=== PATIENT | male | born 1985 | race Two or more races ===

== ENCOUNTER 2022-12-15 09:05 | Emergency (ER) | payer OTHER, SELFPAY ==
[2022-12-15 09:25] VITALS: BP 140/88; PULSE 84; RESP 18; TEMP 36.9; O2SAT 99; BMI 38.4
--- NOTE | 2022-12-15 09:35 | PC.NURSE ---
12/15/22 0935 pt reports pain edema to approx half golf ball sized area to posterior neck just distal to hairline, no active drainage, tender to touch, slightly boggy. Bryan Rodney RN
[2022-12-15] MEDS: LIDOCAINE HCL 2%-EPINEPHRINE 1:200,000 20 ML MDV INJ (09:49)
--- NOTE | 2022-12-15 09:58 | ED.SKABFB1 ---
HPI - Skin/Abscess/Foreign Bdy General Chief complaint: Skin/Abscess/Foreign Body Stated complaint: ABCESS ON R SIDE OF NECK Time Seen by Provider: 12/15/22 09:20 Source: patient Mode of arrival: walk-in Limitations: no limitations History of Present Illness HPI narrative: painful area of skin to right lower posterolateral neck. Started last week and slowly worsened. No swollen and painful - concern for abscess. No systemic symptoms such as fever or vomiting. Related Data Previous Rx's Medication Instructions Recorded doxycycline hyclate 100 mg capsule 100 mg PO BID 7 days #14 caps 12/15/22 nabumetone 750 mg tablet 750 mg PO BID #14 tabs 12/15/22 Allergies Allergy/AdvReac Type Severity Reaction Status Date / Time azithromycin [From Zithromax] Allergy Intermediate Verified 12/15/22 09:28 Penicillins Allergy Intermediate Verified 12/15/22 09:28 sulfamethoxazole Allergy Intermediate Verified 12/15/22 09:32 [From Bactrim] trimethoprim [From Bactrim] Allergy Intermediate Verified 12/15/22 09:32 PFSH PFSH Social History Smoking status: Former smoker Exam Narrative Exam Narrative: Nurses notes and vital signs reviewed and patient is not hypoxic. afebrile General: Well-appearing and in no apparent distress. Skin: Warm, dry, no pallor noted. No rash. RIGHT LOWER POSTEROLATERAL NECK = skin abscess measuring 2.5cm x 1.5cm with induration and a central area of fluctuance. Head: Normocephalic, atraumatic. Neck: Supple, tender at cutaneous abscess - see above Eye: Pupils are equal, round and EOMI. No scleral icterus. Cardiovascular: Regular Rate and Rhythm without murmur, gallop or rub. Respiratory: No accessory muscle use or respiratory distress. Lungs are clear to auscultation, no wheezing, rales or rhonchi Musculoskeletal: normal ROM Neurological: A&O x4. No cranial nerve dysfunction observed. No truncal ataxia. Moves all extremities. Sensation intact. Psychiatric: Cooperative and interactive. Normal mood and affect. Constitutional Vital Signs, click to edit/add: Last Vital Signs Temp 98.5 F 12/15/22 09:25 Pulse 84 12/15/22 09:25 Resp 18 12/15/22 09:25 BP 140/88 H 07/17/23 09:25 Pulse Ox 99 12/15/22 09:25 O2 Del Method Room Air 12/15/22 09:25 Course Vital Signs Vital signs: Vital Signs Temperature 98.5 F 12/15/22 09:25 Pulse Rate 84 12/15/22 09:25 Respiratory Rate 18 12/15/22 09:25 Blood Pressure 140/88 H 12/15/22 09:25 Pulse Oximetry 99 12/15/22 09:25 Oxygen Delivery Method Room Air 12/15/22 09:25 Temperature 98.5 F 12/15/22 09:25 Pulse Rate 84 12/15/22 09:25 Respiratory Rate 18 12/15/22 09:25 Blood Pressure 140/88 H 12/15/22 09:25 Pulse Oximetry 99 12/15/22 09:25 Oxygen Delivery Method Room Air 12/15/22 09:25 MDM - Skin/Abscess/Foreign Bdy MDM Narrative Medical decision making narrative: the patient tolerated the procedure well. See my note above. Wound culture sent he was given oral doxycycline in the emergency Department before discharge. He is prescribed additional doxycycline to take at home along with Relafen for pain. He was given referral information for Dr. Taylor for follow up if he cant see his PCP Discharge Plan Discharge Chief Complaint: Skin/Abscess/Foreign Body Clinical Impression: Abscess of skin or subcutaneous tissue Patient Disposition: Home, Self-Care Time of Disposition Decision: 09:56 Prescriptions / Home Meds: New doxycycline hyclate 100 mg capsule 100 mg PO BID 7 Days Qty: 14 0RF nabumetone 750 mg tablet 750 mg PO BID Qty: 14 0RF Instructions: Abscess (ED) Stand Alone Forms: Portal Instructions Referrals: Eliseo Taylor MD [Physician] - 1 week Procedures ED ID Incision & Drainage I&D Type: abcess Site: other (neck) Side (if applicable): right Anesthetic used: lidocaine 1% (with epi) Technique: needle aspiration and incised with #11 blade Amount of fluid (mL): 7 (mL) Irrigation: Yes Packing used: none Complications: other (no complications)
[2022-12-15] MEDS: DOXYCYCLINE MONOHYDRATE 100 MG CAPSULE PO (10:05)
== END 2022-12-15 10:13 | disposition home or self-care (01) ==
PROVIDERS: Emergency Provider Emergency Medicine
DX: L02.11 Cutaneous abscess of neck (principal)
CPT/HCPCS: 10060; 87070; 87076; 99283

== ENCOUNTER 2023-07-21 13:33 | Emergency (ER) | payer SELFPAY ==
[2023-07-21] VITALS (10 sets, daily range): BP systolic 110–133; BP diastolic 74–92; PULSE 102–132; RESP 12–21; TEMP 36.7; O2SAT 94–100; BMI 51.8
--- NOTE | 2023-07-21 13:49 | ECG_ITS ---
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
[2023-07-21] MEDS: IPRATROPIUM/ALBUTEROL SULFATE 3 ML AMPUL.NEB IH (13:50)
--- NOTE | 2023-07-21 13:52 | ED.SOB1 ---
HPI - SOB/Dyspnea General Chief Complaint: Shortness of Breath/Dyspnea Stated Complaint: SOB Time Seen by Provider: 07/21/23 13:43 Source: patient Limitations: no limitations History of Present Illness HPI Narrative: Patient is a 37-year-old male with a history of COPD who presents to the emergency department for increased shortness of breath at a began overnight. He has some tightness in the chest. He denies fevers, chills. He is diaphoretic, stridorous with increased work of breathing at initial interview. He has not had any other significant upper respiratory symptoms. No hemoptysis or sputum production. No peripheral edema. He used his rescue inhaler prior to arrival without improvement. Related Data Previous Rx's Medication Instructions Recorded doxycycline hyclate 100 mg capsule 100 mg PO BID 7 days #14 caps 12/15/22 nabumetone 750 mg tablet 750 mg PO BID #14 tabs 12/15/22 albuterol sulfate 2.5 mg/3 mL 2.5 mg (3 mL) inhalation Q6H PRN 07/21/23 (0.083 %) solution for nebulization shortness of breath or wheezing #90 mL hwfljyekxefsswn-kcpdceqxknqlarm-LA 10 ml PO Q6H PRN cold symptoms 07/21/23 2 mg-30 mg-10 mg/5 mL oral syrup #200 mL (Bromfed DM) prednisone 20 mg tablet See Rx Instructions .Route 07/21/23 .COMPLEX #12 tabs promethazine 25 mg tablet 25 mg PO Q6H PRN nausea and 07/21/23 vomiting #12 tabs Allergies Allergy/AdvReac Type Severity Reaction Status Date / Time azithromycin [From Zithromax] Allergy Intermediate Verified 12/15/22 09:28 Penicillins Allergy Intermediate Verified 12/15/22 09:28 sulfamethoxazole Allergy Intermediate Verified 12/15/22 09:32 [From Bactrim] trimethoprim [From Bactrim] Allergy Intermediate Verified 12/15/22 09:32 Review of Systems ROS Constitutional Denies: fever or chills Ears, nose, mouth, and throat Denies: throat pain or nasal congestion Cardiovascular Reports: chest pain Respiratory Reports: shortness of breath and cough Gastrointestinal Denies: nausea or vomiting Musculoskeletal Denies: back pain Integumentary/Breast Denies: rash Neurological Denies: headache Hematologic/Lymphatic Denies: easy bruising or easy bleeding PFSH PFS Social History Smoking status: Current every day smoker Exam Narrative Exam Narrative: Gen.: Awake, alert, Mild distress Head: Normocephalic, atraumatic ENT: Moist mucous membranes Respiratory: Tachypnea with inspiratory and expiratory wheezing, mild stridor, unable to speak in full sentences Cardio: Regular rate and rhythm Extremities: Moves extremities equally Psych: Normal mood and affect Neuro: No focal neuro deficit Skin: Warm, dry, intact Constitutional Vital Signs, click to edit/add: Last Vital Signs Temp 98.0 F 07/21/23 13:48 Pulse 132 H 07/21/23 16:00 Resp 12 07/21/23 16:00 BP 110/82 07/21/23 16:00 Pulse Ox 96 07/21/23 16:00 O2 Del Method Room Air 07/21/23 15:53 Course Vital Signs Vital signs: Vital Signs Temperature 98.0 F 07/21/23 13:48 Pulse Rate 107 H 07/21/23 13:48 Respiratory Rate 18 07/21/23 13:48 Blood Pressure 133/92 H 07/21/23 13:48 Pulse Oximetry 98 07/21/23 13:48 Oxygen Delivery Method Room Air 07/21/23 13:48 Temperature 98.0 F 07/21/23 13:48 Pulse Rate 132 H 07/21/23 16:00 Respiratory Rate 12 07/21/23 16:00 Blood Pressure 110/82 07/21/23 16:00 Pulse Oximetry 96 07/21/23 16:00 Oxygen Delivery Method Room Air 07/21/23 15:53 MDM - SOB/Dyspnea MDM Narrative Medical decision making narrative: On arrival, the patient was diaphoretic, he had mild respiratory distress and was immediately placed in a room on cardiac monitoring. He had no hypoxia throughout his stay in the emergency department. He received multiple breathing treatments, magnesium, Solu-Medrol. He is positive for influenza A. Because he reported such significant shortness of breath initially, he was sent for CTA of the chest although his D-dimer was normal. This is unremarkable. I reevaluated the patient after repeat breathing treatment. He states that he does not wish to stay in the hospital overnight for observation for COPD exacerbation and influenza A. He states he does not have insurance and is worried about the cost of the admission. He would like to try outpatient treatment. He was given albuterol nebulizers, steroids, Bromfed-DM, Zofran for home. He was instructed to call the emergency department if he has any difficulty getting his prescriptions and he should return to the ER if symptoms change or worsen. Medical Records Attestation: I reviewed the patient's medical records. Lab Data Attestation: I reviewed the patient's lab results. Labs: Lab Results 07/21/23 07/21/23 Range/Units 14:07 14:13 WBC 11.9 H (4.0-11.0) 10^3/uL RBC 5.76 (4.70-6.10) 10^6/uL Hgb 16.2 (14.0-18.0) g/dL Hct 49.7 (42.0-54.0) % MCV 86.3 (80.0-94.0) fL MCH 28.1 (25.9-34.0) pg MCHC 32.6 (29.9-35.2) g/dL RDW 13.2 (11.0-15.0) % Plt Count 254 (150-450) 10^3/uL MPV 11.3 (9.5-13.5) fL Neut % (Auto) 81.5 H (43.0-75.0) % Lymph % (Auto) 12.4 L (20.5-60.0) % [place] % (Auto) 4.0 (1.7-12.0) % Eos % (Auto) 1.0 (0.9-7.0) % Baso % (Auto) 0.6 (0.2-2.0) % Neut # (Auto) 9.7 H (1.4-6.5) 10^3/uL Lymph # (Auto) 1.5 (1.2-3.8) 10^3/uL [place] # (Auto) 0.5 (0.3-0.8) 10^3/uL Eos # (Auto) 0.1 (0.0-0.7) 10^3/uL Baso # (Auto) 0.1 (0.0-0.1) 10^3/uL Abs Immat Gran (auto) 0.06 H (0.00-0.03) 10^3/uL Imm/Tot Granulo (auto) 0.5 (0.0-0.5) % PT 9.9 (9.0-11.6) sec INR 0.93 D-Dimer 0.40 (<=0.59) mg/L FEU VBG pH 7.499 H (7.330-7.430) VBG pCO2 26.9 L (40.0-52.0) mmHg Sodium 140 (136-145) mmol/L Potassium 3.6 (3.5-5.1) mmol/L Chloride 101 (98-107) mmol/L Carbon Dioxide 24.2 (21.0-32.0) mmol/L Anion Gap 18.4 BUN 11.0 (7.0-18.0) mg/dL Creatinine 0.82 (0.70-1.30) mg/dL Est GFR ( Amer) >60 (>=60) Est GFR (Non-Af Amer) >60 (>=60) BUN/Creatinine Ratio 13.4 Glucose 119 H (74-106) mg/dL Lactate 2.6 H* (0.4-2.0) mmol/L Calcium 8.7 (8.5-10.1) mg/dL Total Bilirubin 0.6 (0.2-1.0) mg/dL AST 11 L (15-37) U/L ALT 24 (16-63) U/L Alkaline Phosphatase 65 (46-116) U/L Troponin I High Sens 4.1 (4.0-76.1) pg/mL NT-Pro-B Natriuret Pep 17.0 (<=450.0) pg/mL Total Protein 8.5 H (6.4-8.2) g/dL Albumin 3.8 (3.4-5.0) g/dL Globulin 4.7 g/dL Albumin/Globulin Ratio 0.8 Procalcitonin <0.05 (0.00-0.50) ng/mL Adenovirus (PCR) Not detected (NOT DETECTE) C. pneumoniae DNA (PCR) Not detected (NOT DETECTE) Coronavirus Type OC43 Not detected (NOT DETECTE) Coronavirus Type HKU1 Not detected (NOT DETECTE) Coronavirus Type 229E Not detected (NOT DETECTE) Coronavirus Type NL63 Not detected (NOT DETECTE) Human Metapneumovir PCR Not detected (NOT DETECTE) Influ A (H1N1/09) PCR Detected M. pneumoniae (PCR) Not detected (NOT DETECTE) Parainfluenza PCR Not detected (NOT DETECTE) Parainfluenza 2 (PCR) Not detected (NOT DETECTE) Parainfluenza 3 (PCR) Not detected (NOT DETECTE) Parainfluenza 4 (PCR) Not detected (NOT DETECTE) RSV (RT-PCR) Not detected (NOT DETECTE) Entero/Rhino (PCR) Not detected (NOT DETECTE) SARS-CoV-2 (PCR) Not detected (NOT DETECTE) Bordetella pertussis (PCR) Not detected (NOT DETECTE) B parapertussis DNA PCR Not detected (NOT DETECTE) Influenza Type B (PCR) Not detected (NOT DETECTE) Imaging Data CT scan - chest: Attestation: I have reviewed the pertinent imaging results. Radiologist's impression: ITS Impressions Chest CTA 07/21/23 14:19 IMPRESSION: 1. No pulmonary embolism. 2. No acute infiltrates or suspicious findings to account for patient's symptoms. Electronically authenticated by: BLAINE CUELLAR Date: 07/21/2023 15:15 ECG Data Attestation: I personally reviewed and interpreted this ECG as follows: (Sinus tachycardia at a rate of 102, no acute ST elevation or ectopy. EKG reviewed by attending physician) Discharge Plan Discharge Chief Complaint: Shortness of Breath/Dyspnea Clinical Impression: Influenza A, COPD exacerbation Patient Disposition: Home, Self-Care Time of Disposition Decision: 16:23 Condition: Good Prescriptions / Home Meds: New albuterol sulfate 2.5 mg /3 mL (0.083 %) solution for nebulization 2.5 mg inhalation Q6H PRN (Reason: shortness of breath or wheezing) Qty: 90 0RF prednisone 20 mg tablet See Rx Instructions .ROUTE .COMPLEX Qty: 12 0RF Rx Instructions: 3 tabs daily for 2 days, then 2 tabs daily for 2 days, then 1 tab daily for 2 days promethazine 25 mg tablet 25 mg PO Q6H PRN (Reason: nausea and vomiting) Qty: 12 0RF vuzfkgsmvssanbd-zjyeqbwsf-SY [Bromfed DM] 2-30-10 mg/5 mL syrup 10 ml PO Q6H PRN (Reason: cold symptoms) Qty: 200 0RF No Action doxycycline hyclate 100 mg capsule 100 mg PO BID 7 Days Qty: 14 0RF nabumetone 750 mg tablet 750 mg PO BID Qty: 14 0RF Instructions: Influenza (ED), COPD (Chronic Obstructive Pulmonary Disease) (ED) Stand Alone Forms: Portal Instructions Referrals: Physician,Non-Staff, MD [Primary Care Provider] - 1 week Discharge Date/Time: 07/21/23 16:34
[2023-07-21] MEDS: METHYLPREDNISOLONE SOD SUCC PF 125 MG/2 ML VIAL IVP (13:56)
[2023-07-21] MEDS: MAGNESIUM SULFATE IN WATER 2 GM/50 ML PREMIX IV (13:56)
[2023-07-21] MEDS: 0.9 % SODIUM CHLORIDE 1,000 ML 1000 ML IV (13:57)
[2023-07-21] MEDS: ALBUTEROL SULFATE 2.5 MG/3 ML VIAL NEB IH ×2 (13:59→16:01)
--- NOTE | 2023-07-21 14:19 | CT_ITS ---
[address] [address] Patient Name: NURIA BALDERAS MRN: [id number] date: 1985 Sex: M Assigned Patient Location: ER Current Patient Location: Accession/Order Number: [id number] Exam Date: 07/21/2023 14:37 Report Date: 07/21/2023 15:15 At the request of: MICHELLE DEJESUS Procedure: CT angio chest EXAMINATION: CT angio chest HISTORY: PE , diaphoresis, inspiratory stridor, right side chest pain COMPARISON: No relevant comparison available. TECHNIQUE: Multi-planar CT images were created with IV contrast. Axial, Coronal, and Sagittal images. Dose reduction techniques were achieved by using automated exposure control and/or adjustment of mA and/or kV according to patient size and/or use of iterative reconstruction technique. 3-D reconstruction was performed on a separate workstation. FINDINGS: VASCULATURE: No pulmonary embolism or abnormal opacity. LUNGS: No visible pulmonary disease. PLEURA: No mass, effusion, or pneumothorax. YANCI: No mass or adenopathy. MEDIASTINUM: No mass or adenopathy. CARDIAC: No enlargement, pericardial effusion, or pericardial thickening. AORTA: No aneurysm or dissection. CHEST WALL: No mass or axillary adenopathy. BONES: No bone lesion or fracture. LIMITED ABDOMEN: No suspicious findings. Limited images of the upper abdomen. OTHER: Negative. CT/CT angio chest IMPRESSION: 1. No pulmonary embolism. 2. No acute infiltrates or suspicious findings to account for patient's symptoms. Electronically authenticated by: BLAINE CUELLAR Date: 07/21/2023 15:15
[2023-07-21 14:23] LABS: Adenovirus NOT DETECTED (NOT DETECTE); Bordetella parapertussis NOT DETECTED (NOT DETECTE); Coronavirus 229E NOT DETECTED (NOT DETECTE); Coronavirus HKU1 NOT DETECTED (NOT DETECTE); Coronavirus NL63 NOT DETECTED (NOT DETECTE); Coronavirus OC43 NOT DETECTED (NOT DETECTE); Human Metapneumovirus NOT DETECTED (NOT DETECTE); Human Rhinovirus/Enterovirus NOT DETECTED (NOT DETECTE); Influenza B NOT DETECTED (NOT DETECTE); Mycoplasma pneumoniae NOT DETECTED (NOT DETECTE); Parainfluenza Virus 1 NOT DETECTED (NOT DETECTE); Parainfluenza Virus 2 NOT DETECTED (NOT DETECTE); Parainfluenza Virus 3 NOT DETECTED (NOT DETECTE); Parainfluenza Virus 4 NOT DETECTED (NOT DETECTE); Respiratory Syncytial Virus NOT DETECTED (NOT DETECTE); SARS-CoV-2 NOT DETECTED (NOT DETECTE)
[2023-07-21 14:27] LABS: PCO2 VBG 26.9 mmHg (40.0-52.0); pH VBG 7.499 (7.330-7.430)
[2023-07-21 14:30] LABS: Basophils Absolute Auto 0.1 10^3/uL (0.0-0.1); Basophils Percent Auto 0.6 % (0.2-2.0); Eosinophils Absolute Auto 0.1 10^3/uL (0.0-0.7); Hematocrit 49.7 % (42.0-54.0); Hemoglobin 16.2 g/dL (14.0-18.0); Immature Granulocytes Abs Auto 0.06 10^3/uL (0.00-0.03); Immature Granulocytes Pct Auto 0.5 % (0.0-0.5); Lymphocytes Absolute Auto 1.5 10^3/uL (1.2-3.8); Lymphocytes Percent Auto 12.4 % (20.5-60.0); Mean Corpuscular HGB Conc 32.6 g/dL (29.9-35.2); Mean Corpuscular Hemoglobin 28.1 pg (25.9-34.0); Mean Corpuscular Volume 86.3 fL (80.0-94.0); Mean Platelet Volume 11.3 fL (9.5-13.5); Monocytes Absolute Auto 0.5 10^3/uL (0.3-0.8); Neutrophils Absolute Auto 9.7 10^3/uL (1.4-6.5); Neutrophils Percent Auto 81.5 % (43.0-75.0); Platelet Count 254 10^3/uL (150-450); Red Blood Count 5.76 10^6/uL (4.70-6.10); Red Cell Distribution Width 13.2 % (11.0-15.0); White Blood Count 11.9 10^3/uL (4.0-11.0)
[2023-07-21 14:52] LABS: Alanine Aminotransferase 24 U/L (16-63); Albumin Globulin Ratio 0.8; Albumin Level 3.8 g/dL (3.4-5.0); Alkaline Phosphatase 65 U/L (46-116); Anion Gap 18.4; Aspartate Amino Transferase 11 U/L (15-37); BUN Creatinine Ratio 13.4; Bilirubin Total 0.6 mg/dL (0.2-1.0); Calcium 8.7 mg/dL (8.5-10.1); Carbon Dioxide 24.2 mmol/L (21.0-32.0); Chloride 101 mmol/L (98-107); Estimated GFR (African America >60 (>=60); Estimated GFR (Non-African Ame >60 (>=60); Globulin 4.7 g/dL; Glucose 119 mg/dL (74-106); Potassium 3.6 mmol/L (3.5-5.1); Sodium 140 mmol/L (136-145); Total Protein 8.5 g/dL (6.4-8.2); Troponin I High Sensitivity 4.1 pg/mL (4.0-76.1)
[2023-07-21 14:58] LABS: Lactate/Lactic Acid 2.6 mmol/L (0.4-2.0)
[2023-07-21 14:59] LABS: INR 0.93; Prothrombin Time 9.9 sec (9.0-11.6)
[2023-07-21 15:21] LABS: PROCALCITONIN <0.05 ng/mL (0.00-0.50)
[2023-07-21 15:46] LABS: Influenza A\\H1-2009 DETECTED
--- NOTE | 2023-07-21 16:08 | ECG_ITS ---
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
== END 2023-07-21 16:34 | disposition home or self-care (01) ==
PROVIDERS: Physician Assistant; Emergency Provider Emergency Medicine Emergency Medical Services
DX: J10.1 Influenza due to other identified influenza virus with other respiratory manifestations (principal); J44.1 Chronic obstructive pulmonary disease with (acute) exacerbation; R06.02 Shortness of breath; R07.9 Chest pain, unspecified; F17.200 Nicotine dependence, unspecified, uncomplicated
CPT/HCPCS: 0202U; 36415; 71275; 80053; 82800; 83605; 83880; 84145; 84484; 85025; 85378; 85610; 87040; 93005; 94640; 96374; 96375; 99285; J2930; Q9967